=== PATIENT | male | born 1940 | race Caucasian/White ===

== ENCOUNTER 2016-10-22 03:00 | Inpatient (IN) | payer MEDICARE ==
--- NOTE | ~2016-10-22 | EKG ---
PATIENT: GEOVANNY GARCIA UNIT #: [id number] Ventricular Rate: 105 BPM Atrial Rate: 105 BPM P-R Interval: 198 ms QRS Duration: 100 ms Q-T Interval: 350 ms QTC Calculation(Bezet): 462 ms P [place]: 74 degrees Calculated R [place]: -24 degrees Calculated T [place]: 77 degrees Diagnosis Line: Sinus tachycardia Diagnosis Line: Possible Left atrial enlargement Diagnosis Line: Borderline ECG Diagnosis Line: No previous ECGs available Diagnosis Line: Confirmed by LIMA SAUCEDO MD ([id number]) on Diagnosis Line: 10/24/2016 9:49:42 AM INTERPRETING MD: CARINA
--- NOTE | ~2016-10-22 | CO ---
Unit #: [id number] #: [id number] Patient: GEOVANNY GARCIA [id number] [address] [address] [id number] I MR#: [id number] NAME: GEOVANNY GARCIA ROOM: 318 Age: 76 Sex: M Admission Date: 10/22/2016 : 1940 Attending Physician: Madiha Hernadez M.D. Primary Care Physician: Oralia Primary Care Physician Consultation Date: 10/22/2016 CONSULTATION REPORT REASON FOR CONSULTATION Respiratory failure and COPD exacerbation and pleural effusion. CHIEF COMPLAINT Shortness of breath. HISTORY OF PRESENT ILLNESS This patient basically is a 76-year-old male with past medical history of extensive COPD, congestive heart failure, coronary artery disease, and hypokalemia, hernia repair, presents with a complaint of cough, shortness of breath, increasing sputum production for the last two to three days. Symptoms were getting worse. Patient felt that he was going to pass out, with some chest pressure was placed on BiPAP, feeling better, given diuretics. I am seeing him at the bedside. Denies any nausea, vomiting, diarrhea. REVIEW OF SYSTEMS Positive for pallor. No edema, no cyanosis, and no jaundice. The rest is as per history of present illness. The rest of the twelve point review of system has been reviewed and is negative. PAST MEDICAL HISTORY Congestive heart failure, hypertension, COPD, coronary artery disease, hyperkalemia, hernia repair. ALLERGIES No known drug allergies. MEDICATIONS None available. SOCIAL HISTORY Half pack smoker per day. Denies alcohol or drug abuse. PHYSICAL EXAMINATION VITAL SIGNS: Temperature 99, pulse 87, respirations 12, blood pressure 130/70. NEUROLOGIC: Awake, alert and oriented. No neuro deficit. HEENT: PERRLA. +1. NECK: Supple. No JVD. CHEST: Bilateral air entry. Bilateral mild rhonchi. GI: Nontender, soft. Bowel sounds positive. EXTREMITIES: No edema. SKIN: No rashes, no ulcers. Unit #: [id number] #: [id number] Patient: GEOVANNY GARCIA LYMPHATICS: No lymphadenopathy. ASSESSMENT AND PLAN 1. Acute exacerbation of COPD. 2. Acute exacerbation of congestive heart failure. 3. Aortic stenosis. 4. Hypertension. 5. Dyslipidemia. PLAN Continue patient on diuretics, IV steroids, IV antibiotics, bronchodilator. GI and DVT prophylaxis. Continue ventilator, BiPAP support. CT chest to evaluate the right-sided fusion and possibly we need thoracentesis. Thank you very much for this consultation. Will follow the patient. Dictated by... Elsi Jorge TD: 10/22/2016 12:59 JOB #: [id number] CONSULTATION REPORT Page 1 of 1 X Vanessa Omer MD X CONSULTATION REPORT
--- NOTE | ~2016-10-22 | DS ---
Unit #: [id number] #: [id number] Patient: GEOVANNY GARCIA [id number] [address] [address] [id number] I MR#: [id number] NAME: GEOVANNY GARCIA ROOM: 318 Age: 76 Sex: M Admission Date: 10/22/2016 : 1940 Discharge Date: 10/24/2016 Attending Physician: Madiha Hernadez M.D. Primary Care Physician: No Primary Care Physician DISCHARGE SUMMARY ADMIT DIAGNOSIS Dyspnea. DISCHARGE DIAGNOSES 1. Acute on chronic diastolic congestive heart failure, recurrent. 2. Severe aortic stenosis, symptomatic. 3. Chronic obstructive pulmonary disease. 4. Hepatitis C with cirrhosis. 5. Hypertension. 6. Dyslipidemia. 7. Lung nodules, follow as an outpatient. 8. Almanzar's esophagus. 9. Severe diverticulosis. 10. Chronic low-back pain. HOSPITAL COURSE Patient was admitted and diuresed. Weight decreased from 165 pounds to 159 pounds. Echocardiogram showed moderate aortic insufficiency, severe aortic stenosis, mild mitral regurgitation, and mild tricuspid regurgitation. Ejection fraction was 60% with moderate left ventricular hypertrophy at 1.4 and 1.8 cm. The peak aortic gradient was 41, mean gradient was 23 mmHg. Patient was seen by pulmonary and meds adjusted. During hospitalization, blood pressure was difficult to control, sometimes 125/58 but more often was in the 160 to 180 systolic range. Labs showed a creatinine of 1, potassium 4, magnesium 1.9. White blood count of 11.9, hemoglobin 11.8, platelet count 197,000. Thoracentesis was performed because of pleural effusions and the patient felt improved after this. DISCHARGE FOLLOWUP Recommend patient see someone at the [facility] for consideration of transaortic valve replacement (TAVR) for recurrent congestive heart failure. I reviewed the [place] records and the patient was admitted for heart failure in October 2015, April 2016, and October 2016. Thus, about every six months. DISCHARGE MEDICATIONS 1. Albuterol two puffs q.4 hours p.r.n. 2. Symbicort. 3. Possibly prednisone, pulmonary will review today. 4. Spiriva. 5. Gabapentin 300 mg t.i.d. Unit #: [id number] #: [id number] Patient: GEOVANNY GARCIA 6. Fluoxetine 20 mg daily. 7. Atorvastatin 20 mg daily. 8. BuSpar 15 mg t.i.d. 9. Valium 5 mg t.i.d. 10. Metoprolol 50 mg b.i.d. 11. Bumex 2 mg b.i.d. 12. Urea cream. 13. Lubricating eye drops. 14. Zestril 40 mg one half tab b.i.d. 15. Spironolactone 25 mg daily (new drug). 16. Aspirin 81 mg daily (new drug). 17. Pantoprazole 40 mg daily. 18. Levofloxacin perhaps per pulmonary. 19. Potassium 20 mEq b.i.d. 20. Nitroglycerin p.r.n. Dictated by... Elsi De La Torre/chandrika TD: 10/26/2016 10:38 JOB #: [id number] DISCHARGE SUMMARY Page 1 of 1 X Paul Hutson MD X DISCHARGE SUMMARY
--- NOTE | ~2016-10-22 | CR72 ---
[facility] A Service of [facility] & [facility] RADIOLOGY TEXT RESULTS PATIENT: GEOVANNY GARCIA LOCATION: [facility] 318- : 42 UNIT #: [id number] AGE: [address]: FLORENTIN MCNEIL MD SEX: M ORDER DR: [id number] [facility]. [place], [place] [address] [id number] I MR#: [id number] Acc #: [id number] NAME: GEOVANNY GARCIA : 1940 SEX: M STUDY DATE/TIME: 10/23/2016 16:55 [facility] ROOM: [facility] STUDY DESCRIPTION: CR Chest Single View Portable Attending Physician: Florentin Mcneil M.D. Referring Physician: Tae De La Rosa M.D. Ordering Physician: Tae De La Rosa M.D. Primary Care Physician: No Primary Care Physician MEDICAL IMAGING REPORT This report is preliminary unless electronic signature is present EXAM Portable chest. INDICATION Post right thoracentesis compared with yesterday. FINDINGS Status post right thoracentesis with decrease in right pleural fluid. No pneumothorax. Bilateral interstitial opacities have also decreased. Findings overall suggest improved pulmonary edema. Stable heart size. IMPRESSION No evidence of pneumothorax following thoracentesis. Dictated by... Brian Wong M.D. THIS IS AN ELECTRONICALLY VERIFIED REPORT Brian Wong M.D. at 10/24/2016 5:16 PM MIMA/grayson TD: 10/24/2016 00:15 JOB #: [id number] MEDICAL IMAGING REPORT Page 1 of 1 COPY
--- NOTE | ~2016-10-22 | XA203 ---
[facility] A Service of [facility] RADIOLOGY TEXT RESULTS PATIENT: GEOVANNY GARCIA LOCATION: [facility] : 42 UNIT #: [id number] AGE: [address]: FLORENTIN MCNEIL MD SEX: M ORDER DR: [id number] [address] [address] [id number] I MR#: [id number] Acc #: [id number] NAME: GEOVANNY GARCIA : 1940 SEX: M STUDY DATE/TIME: 10/23/2016 16:28 UNIT: [facility] PCU ROOM: [facility] STUDY DESCRIPTION: XA Thoracentesis Attending Physician: Florentin Mcneil M.D. Ordering Physician: Vanessa Omer M.D. Primary Care Physician: No Primary Care Physician MEDICAL IMAGING REPORT This report is preliminary unless electronic signature is present EXAM Ultrasound-guided right thoracentesis. INDICATION 76-year-old male with right pleural effusion. CONSENT Risks, benefits, and alternatives to the procedure were discussed with the patient and informed consent was obtained. In the procedure room, a time-out was performed confirming correct patient and procedure. All elements of maximum sterile-barrier technique were utilized according to guidelines appropriate for the procedure. TECHNIQUE/FINDINGS Ultrasound of the right posterior hemithorax was performed demonstrating a small right pleural effusion. The overlying skin was prepped and draped in the usual sterile fashion and 1% lidocaine was utilized to anesthetize the skin and underlying subcutaneous tissues. Under ultrasound guidance, a 5-Albanian Yueh catheter was inserted into the pleural space on the right and 350 mL of fluid was removed and a sample was sent to the lab. The needle was removed and a sterile dressing was applied. No immediate complications. IMPRESSION Technically successful ultrasound-guided right thoracentesis. Dictated by... Brian Wong M.D. THIS IS AN ELECTRONICALLY VERIFIED REPORT [facility] A Service of [facility] RADIOLOGY TEXT RESULTS PATIENT: GEOVANNY GARCIA LOCATION: [facility] 318- : 42 UNIT #: [id number] AGE: [address]: FLORENTIN MCNEIL MD SEX: M ORDER DR: Brian Wong M.D. at 11/03/2016 7:36 AM MIMA/pro TD: 11/02/2016 10:22 JOB #: [id number] MEDICAL IMAGING REPORT Page 1 of 1 COPY
--- NOTE | ~2016-10-22 | CT57 ---
[facility] A Service of [facility] & [facility] RADIOLOGY TEXT RESULTS PATIENT: GEOVANNY GARCIA LOCATION: [facility] 318- : 42 UNIT #: [id number] AGE: [address]: FLORENTIN MCNEIL MD SEX: M ORDER DR: [id number] [facility]. [place], [place] [address] [id number] I MR#: [id number] Acc #: [id number] NAME: GEOVANNY GARCIA : 1940 SEX: M STUDY DATE/TIME: 10/22/2016 14:29 UNIT: [facility] PCU ROOM: 318 STUDY DESCRIPTION: CT Chest Wo Cont Attending Physician: Florentin Mcneil M.D. Ordering Physician: Vanessa Omer M.D. Primary Care Physician: No Primary Care Physician MEDICAL IMAGING REPORT This report is preliminary unless electronic signature is present EXAM CT chest without contrast. DATE 10/22/2016 HISTORY 76-year-old male with shortness of breath and wheezing with pneumonia for 2 days. Patient states intermittent chest pain, shortness of breath and cough for 1 month. Additional history of hypertension, congestive heart failure and COPD. COMPARISON AP portable chest, 10/22/2016. CT chest without contrast 03/15/2002. PROCEDURE 5 mm noncontrast axial images through the chest. Sagittal and coronal reformatted images were obtained. This CT exam was performed with one or more of the following radiation dose reduction techniques: automatic exposure control, adjustment of mA and/or kV according to patient size, and iterative reconstruction. FINDINGS Moderate emphysematous changes are present, which have progressed since the 2001 exam. Additionally, there is interstitial thickening within both lungs which may represent component of superimposed interstitial edema. Linear and somewhat band-like opacities are present within the right middle lobe and lingula, favored to represent atelectasis. Small right greater than left pleural effusions are present. There is mild cardiomegaly. Median sternotomy changes are present with signs of prior CABG. There are enlarged lymph nodes within the mediastinum which appear new [facility] A Service of [facility] RADIOLOGY TEXT RESULTS PATIENT: GEOVANNY GARCIA LOCATION: [facility] 318-01 : 42 UNIT #: [id number] AGE: [address]: FLORENTIN MCNEIL MD SEX: M ORDER DR: since the 2001 examination. A robert aggregate in the AP window, for example, measures 1.2 x 1.9 cm. A precarinal node measures 1.3 x 1.0 cm. A prevascular node measures 1.6 x 0.9 cm. Both benign and malignant etiologies are in the differential. No supraclavicular or axillary adenopathy is appreciated. Bilateral gynecomastia changes are present. There are dense calcifications within the aortic valve. Cirrhotic liver morphology with perihepatic ascites is noted. Multiple gallstones are present without pericholecystic inflammation or biliary dilation. The spleen is incompletely imaged but appears mildly enlarged. No acute or suspicious osseous abnormalities are identified. IMPRESSION 1. Interstitial thickening in both lungs with small right greater than left layering bilateral pleural effusions. Consolation of findings is favored to represent changes of interstitial pulmonary edema. 2. Band-like and linear opacities in the right middle lobe and right lower lobe favored to represent atelectasis. Pneumonia not excluded. Correlate with clinical symptoms. 3. Moderate generalized emphysema, which has developed or significantly increased since the 2001 study. 4. Enlarged mediastinal lymph nodes as described. These findings are new since 2001. Both benign and malignant etiologies in the differential. Consider short-term CT chest follow up to document improvement or resolution. 5. Left subclavian artery stent in place, not included in the body of the report. 6. Mild cardiomegaly with signs of prior CABG. Aortic valve calcifications are present which can be seen in case of aortic stenosis. Clinically correlate. 7. Cirrhotic liver morphology. Trace peripelvic ascites. Questionable mild splenomegaly. 8. Uncomplicated cholelithiasis. Dictated by... Nel Bustillo M.D. THIS IS AN ELECTRONICALLY VERIFIED REPORT Nel Bustillo M.D. at 10/23/2016 8:29 AM BETSEY/grayson TD: 10/23/2016 00:07 JOB #: [id number] MEDICAL IMAGING REPORT Page 1 of 1 COPY
--- NOTE | ~2016-10-22 | HP ---
Unit #: [id number] #: [id number] Patient: KEENAN GARCIA [id number] [place], [place] [address] [id number] I MR#: [id number] NAME: KEENAN GARCIA ROOM: 69856 Age: 76 Sex: M Admission Date: 10/22/2016 : 1940 Attending Physician: Madiha Hernadez M.D. Primary Care Physician: [facility] HISTORY AND PHYSICAL CHIEF COMPLAINT Shortness of breath. HISTORY OF PRESENT ILLNESS Mr. Keenan Garcia is a 76-year-old male who is a poor historian and has no records with him. From what we are able to obtain at this time, he has a history of coronary artery bypass grafting in 2011, as well as history of congestive heart failure. He was apparently hospitalized at the [facility] just 2 months ago with heart failure. He states that he has had some shortness of breath with exertion since his bypass in 2011, but over the last 3 days he has noticed that it has gotten significantly worse and very noticeable while working. 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 He fell asleep last night on the couch and woke up and felt as though he could barely breathe. He states that he had some cold sweats and felt like he was going to "pass out." He presented to the emergency room via EMS at 3:12 a.m. He has been diuresed with Bumex IV, as well as blood pressure controlled with nitroglycerin drip. He is feeling much better now and is able to converse with me easily and shows no signs of distress. Blood pressure on arrival was 226/115, currently 129/64. This information is from record review, as well as from patient interview. PRIOR CARDIAC TESTING HISTORY He states he had echocardiogram a few weeks ago at the [facility]. PAST MEDICAL HISTORY 1. Congestive heart failure. 2. Hypertension. 3. COPD. 4. Coronary artery disease with history of coronary artery bypass grafting in 2011. 5. Hypokalemia. 6. Hernia repair in 1988. ALLERGIES No known drug allergies. HOME MEDICATIONS Unknown at this time. Trying to obtain records from the [facility]. SOCIAL HISTORY He is a 1/3-gxlb-c-day smoker and has been a smoker for the last 50+ years. He has not used any alcoholic beverages since 1988. He denies the use of drugs. Unit #: [id number] #: [id number] Patient: KEENAN GARCIA FAMILY HISTORY Mother of old age. Father in his 50s of a heart attack. His brother with "heart problems." REVIEW OF SYSTEMS GENERAL: Denies any fever, chills. Had some flu-like symptoms a month ago and positive for unintentional weight loss. He states that he works 10-hour days and that he eats whatever he can. Mostly he eats sausage and eggs for breakfast, hot dogs or whatever he can grab for lunch and then TV dinners for supper. SKIN: Denies any rashes, ulcerations or wounds. HEADACHE: Currently. EYES: Denies any sudden change in vision. EARS: Hard of hearing. BLEEDING: Did have a nosebleed yesterday a.m. but no hemoptysis, hematuria or melena. THROAT: Denies any problems swallowing. LUNGS: Positive for wheeze, cough and shortness of breath. CHEST: Positive for chest pain over the last 1 week. Positive for palpitations with tachycardia. No PND or orthopnea. GI: No nausea, vomiting. Intermittent diarrhea but no change in stools. : Has frequent urination but no burning or urgency. EXTREMITIES: He states that he has had bilateral lower extremity swelling, as he does not take his prescribed water pills because he is unable to work and take his water pills at the same time. NEUROLOGIC: Denies any seizures, stroke-like symptoms. Does have chronic right hand numbness and was dizzy last evening. PHYSICAL EXAMINATION VITAL SIGNS: Blood pressure is 129/64, heart rate 69, respirations 19, temperature 99.3, 95% oxygenated with nasal cannula, 166 pounds. GENERAL: Well-developed, well-nourished elderly looking white male in no acute distress, resting in the bed. SKIN: No obvious rashes or ulcerations noted. EYES: PERRLA. No xanthelasma. ORAL: Poor dentition. Moist mucous membranes. No pallor. NECK: No carotid bruits auscultated bilaterally. SPINE: Not assessed. CHEST: Coarse bilaterally. CARDIAC: S1 and S2 with a 2/6 systolic murmur. No gallop, rub or lift. ABDOMEN: Soft, nontender. Positive bowel sounds. EXTREMITIES: Bilateral pedal pulses +1. Bilateral lower lobe 1+ to 2+ edema. NEUROLOGIC: Alert and oriented x3. Speech is clear. No obvious neuro deficits. DIAGNOSTIC STUDIES CURRENT LABS: Troponin less than 0.05 x2. BNP 3,475. Sodium 138, potassium 3.8, BUN 15, creatinine 1.0, AST 37, ALT 26, albumin 3.1, lactic acid 1.2. PT 10.9, INR 1. Hemoglobin 11.8, hematocrit 37.6, platelets 197, white blood cell count 11.9. IMPRESSION 1. Acute on chronic systolic congestive heart failure. 2. Aortic stenosis. 3. Atherosclerotic heart disease with history of coronary artery bypass grafting. 4. COPD. Unit #: [id number] #: [id number] Patient: KEENAN GARCIA 5. Hypertension. 6. Hyperlipidemia. PLAN We will continue the already initiated Bumex 2 mg IV t.i.d. We will continue aspirin at 81 mg daily, as well as Lipitor daily. We will add some losartan and Toprol. We will also add some spironolactone and make further recommendations after we receive the records from the [facility]. We will discontinue the nitroglycerin drip and change his admit to telemetry instead of intensive care. Dr. Hutson to evaluate and make further recommendations. Dictated by Peyton Christine A.P.R.N. for Paul Hutson M.D. Herrera TD: 10/22/2016 10:08 JOB #: [id number] HISTORY AND PHYSICAL Page 1 of 1 X X HISTORY AND PHYSICAL
--- NOTE | ~2016-10-22 | CR72 ---
[facility] A Service of [facility] & [facility] RADIOLOGY TEXT RESULTS PATIENT: GEOVANNY GARCIA LOCATION: [facility] 318-01 : 42 UNIT #: [id number] AGE: [address]: FLORENTIN MCNEIL MD SEX: M ORDER DR: [id number] [facility] [address] [facility]. [place], [place] [address] [id number] I MR#: [id number] Acc #: [id number] NAME: GEOVANNY GARCIA : 1940 SEX: M STUDY DATE/TIME: 10/22/2016 3:57 UNIT: [facility] ROOM: 74406 STUDY DESCRIPTION: CR Chest Single View Portable Attending Physician: Florentin Mcneil M.D. Ordering Physician: Stefano Clinton D.O. Primary Care Physician: Primary Care Physician No MEDICAL IMAGING REPORT This report is preliminary unless electronic signature is present EXAM Portable chest INDICATION Shortness of air and wheezing since yesterday. PROCEDURE Frontal view of the chest. COMPARISON None. FINDINGS Cardiomegaly. Small right pleural effusion. Diffuse interstitial prominence. IMPRESSION Cardiomegaly with diffuse interstitial prominence nonspecific, but suspicious for pulmonary edema. There is a small right pleural effusion. Dictated by... Mauro Ayala M.D. THIS IS AN ELECTRONICALLY VERIFIED REPORT Mauro Ayala M.D. at 10/26/2016 7:23 AM JORDYN/bunny TD: 10/22/2016 10:26 JOB #: [id number] MEDICAL IMAGING REPORT Page 1 of 1 COPY
[2016-10-22 03:30] LABS: BASOPHIL# 0.1 X10e3 (0-0.3); BASOPHIL% 0.9 % (0-2.5); EOSINOPHIL# 0.1 X10e3 (0-0.7); EOSINOPHIL% 0.6 % (0.0-7.0); HEMATOCRIT 37.6 % (38.0-50.0); HEMOGLOBIN 11.8 gm/dL (13.0-16.0); LYMPHOCYTE# 4.9 X10e3 (1.0-3.5); LYMPHOCYTE% 41.3 % (17.0-45.0); MEAN CELL VOLUME 86.4 FL (83-96); MEAN CORPUSCULAR HGB CONC 31.3 g/dL (30-36); MEAN PLATELET VOLUME 9.5 FL (6.5-11.5); MONOCYTE# 1.2 X10e3 (0-1.0); MONOCYTE% 10.1 % (3.0-12.0); NEUTROPHIL# 5.6 X10e3 (1.5-7.1); NEUTROPHIL% 47.1 % (40-75); PLATELET COUNT 197 X10e3 (140-420); RED BLOOD COUNT 4.36 X10e (3.90-5.60); RED CELL DISTRIBUTION WIDTH 17.1 % (11.0-15.5); WHITE BLOOD COUNT 11.9 X10e3 (4.0-10.5)
[2016-10-22 03:31] LABS: DIFF IND NO
[2016-10-22 03:42] LABS: PARTIAL THROMBOPLASTIN TIME 26.9 SECONDS (23.5-31.3); PROTHROMBIN TIME (PATIENT) 10.9 SECONDS (9.6-11.5)
[2016-10-22 03:57] LABS: POC - CKMB <1.0 ng/mL (0.0-7.9); POC - TROPONIN <0.05 ng/mL (<=0.05)
[2016-10-22 03:58] LABS: ALBUMIN SERUM 3.1 g/dL (3.5-5.0); BILIRUBIN, DIRECT 0.1 mg/dL (0.0-0.2); BILIRUBIN,INDIRECT 0.5 mg/dL (0.0-0.9); BILIRUBIN,TOTAL 0.6 mg/dL (0.2-2.0); CALCIUM SERUM 8.2 mg/dL (8.4-10.2); GLOM FILT RATE Estimated 73.8 mL/min (>60); POTASSIUM 3.8 mmol/L (3.5-5.1); PROTEIN TOTAL SERUM 7.7 g/dL (6.0-8.3)
[2016-10-22 05:11] LABS: POC - CKMB <1.0 ng/mL (0.0-7.9); POC - TROPONIN <0.05 ng/mL (<=0.05)
[2016-10-22] MEDS ORDERED: PROAIR RESPICL90 MCG INH (16:21)
[2016-10-22] MEDS ORDERED: ARTIFICIAL TEAR15 M6 OU (16:24)
[2016-10-22] MEDS ORDERED: ATORVASTATIN CA20 MG PO (16:25)
[2016-10-22] MEDS ORDERED: SYMBICORT INH (16:26)
[2016-10-22] MEDS ORDERED: BUMETANIDE2 M1 PO (16:27)
[2016-10-22] MEDS ORDERED: BUSPAR15 M2 PO (16:28)
[2016-10-22] MEDS ORDERED: DIAZEPAM PO (16:31)
[2016-10-22] MEDS ORDERED: SELFEMRA20 MG PO (16:33)
[2016-10-22] MEDS ORDERED: ZESTRIL40 MG PO (16:34)
[2016-10-22] MEDS ORDERED: GABAPENTIN300 MG PO (16:34)
[2016-10-22] MEDS ORDERED: LUBRICATING PL1 EACH OU (16:35)
[2016-10-22] MEDS ORDERED: LOPRESSOR PO (16:36)
[2016-10-22] MEDS ORDERED: PROTONIX PO (16:38)
[2016-10-22] MEDS ORDERED: NITROGLYCERIN0.4 MG SL (16:38)
[2016-10-22] MEDS ORDERED: POTASSIUM CHLO10 ME1 PO (16:39)
[2016-10-22] MEDS ORDERED: SPIRIVA18 MCG INH (16:40)
[2016-10-22] MEDS ORDERED: UREVAZ60 GM TOP (16:41)
[2016-10-23 06:03] LABS: BUN/CREATININE RATIO 24.44; CALCIUM SERUM 7.9 mg/dL (8.4-10.2); CREATININE SERUM 0.9 mg/dL (0.6-1.4); GLOM FILT RATE Estimated 83.8 mL/min (>60); MAGNESIUM 1.9 mg/dL (1.6-3.0); POTASSIUM 3.8 mmol/L (3.5-5.1)
[2016-10-23 18:05] LABS: PROTEIN, BODY FLUID 1.1 gm/dL
[2016-10-23 18:10] LABS: BODY FLUID APPEARANCE BLOODY; BODY FLUID SOURCE PLEURAL
[2016-10-23 18:34] LABS: BF TOTAL NUCLEATED CELL COUNT 163 CMM (0-100); BODY FLUID RBC 10295 CMM
[2016-10-24 06:55] LABS: CALCIUM SERUM 8.2 mg/dL (8.4-10.2); GLOM FILT RATE Estimated 73.8 mL/min (>60)
[2016-10-24] MEDS ORDERED: DULERA 200 MCG/13 GM INH (16:18)
[2016-10-24] MEDS ORDERED: PREDNISONE10 M1 (16:19)
[2016-10-24] MEDS ORDERED: LEVAQUIN PO (16:19)
== END 2016-10-24 18:30 | disposition home or self-care (01) | DRG 292 ==
LOC: CED 03:12 → CEDOF 05:23 → CED 05:43 → CEDOF 05:43 → C3A PCU 11:09
PROVIDERS: Emergency Medicine; Internal Medicine Interventional Cardiology; Nurse Practitioner Family
PROC: B246YZZ Ultrasonography of Right and Left Heart using Other Contrast (ICD-10-PCS; principal; 2016-10-22)
PROC: 0W993ZX Drainage of Right Pleural Cavity, Percutaneous Approach, Diagnostic (ICD-10-PCS; 2016-10-23)
DX: I11.0 Hypertensive heart disease with heart failure (principal); J44.1 Chronic obstructive pulmonary disease with (acute) exacerbation; J90 Pleural effusion, not elsewhere classified; K74.60 Unspecified cirrhosis of liver; I35.2 Nonrheumatic aortic (valve) stenosis with insufficiency; I50.33 Acute on chronic diastolic (congestive) heart failure; B19.20 Unspecified viral hepatitis C without hepatic coma; E78.5 Hyperlipidemia, unspecified; R91.1 Solitary pulmonary nodule; K22.70 Barrett's esophagus without dysplasia; K57.90 Diverticulosis of intestine, part unspecified, without perforation or abscess without bleeding; M54.5 Low back pain; I25.10 Atherosclerotic heart disease of native coronary artery without angina pectoris; Z95.1 Presence of aortocoronary bypass graft; F17.210 Nicotine dependence, cigarettes, uncomplicated
CPT/HCPCS: 71010; 71250; 80048; 80076; 82308; 82553; 83605; 83615; 83735; 83880; 83986; 84157; 84484; 85025; 85610; 85730; 87070; 87205; 88108; 88305; 89051; 93005; 93306; 94640; 94660; 94760; 96365; 96366; 96375; 99291; J1940; J1956; J2930